=== PATIENT | male | born 1960 | race Caucasian/White ===

== ENCOUNTER 2017-04-14 12:11 | Inpatient (IN) | payer OTHER ==
[~2017-04-14] VITALS: Ht 167.6 cm; Wt 71.4 kg
--- NOTE | ~2017-04-14 | H ---
[facility] [place] [address] HISTORY AND PHYSICAL Name: THOR CALLES Room #: 305-P ADM IN M.R.#: [id number] Admission: 04/14/17 Attend Phys: Sondra Bonds MD, Discharge: Date of : 60 Report #: [id number] THIS REPORT FOR: //name// CC: GONZALO physician/PCP Sondra Bonds DATE OF SERVICE: 04/14/2017 HISTORY OF PRESENT ILLNESS: I have been asked to evaluate this 57-year-old male who presented to Emergency Room with the chief complaint of 2 days of lower abdominal pain, primarily located at right side. The onset of his pain was Thursday at approximately 4:00 p.m. He was unable to work on Thursday and the pain was progressive, worsening with hiccups or any type of abdominal movement. He denies nausea and vomiting. He is obstipated and he is anorexic since Thursday afternoon. He sought medical attention today, was found to have a CT scan demonstrating appendicitis. PAST MEDICAL HISTORY: Borderline hypertension. MEDICATIONS: None. SURGICAL ILLNESSES: Laparoscopic cholecystectomy approximately 4 years ago. Tonsillectomy in childhood. MEDICATIONS: None currently. ALLERGIES: No known drug allergies. SOCIAL HISTORY: The patient employed by [employer]. 40-50 pack year history of cigarette smoking. Occasional alcohol on the weekend, 2-3 drinks, not on a regular basis. REVIEW OF SYSTEMS: Ten point review of systems noncontributory to the present illness, except for change in gastrointestinal function. PHYSICAL EXAMINATION: GENERAL: Reveals a well-developed and well-nourished male, in no acute distress. VITAL SIGNS: He is afebrile. Blood pressure is approximately 180/90. Pulse rate 80-90. HEENT: No scleral icterus. Pupils equal, round and react to light. Extraocular movements normal limits. NECK: Supple. No adenopathy. LUNGS: Clear at the bases bilaterally. CARDIOVASCULAR: Regular rate and rhythm. ABDOMEN: Mild distention. Marked tenderness with guarding in the right lower [address] [address] [place] [address] HISTORY AND PHYSICAL [facility] Room #: 305-P ADM IN ..#: [id number] Admission: 04/14/17 Attend Phys: Sondra Bonds MD, Discharge: Date of : 60 Report #: [id number] quadrant and right upper quadrant. Rebound is positive. RECTAL: Not performed. NEUROLOGIC: He is oriented x 3. Bilateral motor symmetry. ADMITTING DIAGNOSIS: Acute appendicitis. PLAN: IV antibiotics. Laparoscopic appendectomy today. <ELECTRONICALLY SIGNED> By: Federico Lemus MD, FACS 04/14/17 1853 1554 1824 Federico Lemus MD, FACS /nt
--- NOTE | ~2017-04-14 | S ---
[facility] [place] [address] SURGICAL PATH RPT PROCEDURE Name: THOR CALLES Room #: 305-P ADM IN M.R.#: [id number] Admission: 04/14/17 Date of : 60 Discharge: Report #: [id number] Path Case #: [id number] PATHOLOGY REPORT COLLECTION DATE: 04/14/2017 RECEIVED DATE: 04/15/2017 SUBMITTING PHYS: Dr. Federico Lemus OTHER PHYS: Dr. Sondra Bonds SPECIMEN(S) RECEIVED: A.Appendix B.Adhesions on serosal surface of colon * * * * * * * * * * * * FINAL DIAGNOSIS: A. Appendix, appendectomy: - Marked acute appendicitis, along with focal serositis. - Fibrous obliteration of the tip. B. Fragment of muscularis propria, "adhesions on surface of colon", biopsy: - Reactive changes along with congestion. PATHOLOGIST: Priscilla Ybarra M.D. REPORT ELECTRONICALLY SIGNED BY: Priscilla Ybarra M.D. DATE/TIME: 04/16/2017 14:49 * * * * * * * * * * * * GROSS PATHOLOGY: A. Received in formalin labeled "Thor Colon, appendix," is an appendix measuring 5.3 cm in length and 1.0 cm in diameter with a abundant amount of attached mesoappendix. The serosal surface is moore-brown, focally congested and focally ragged. Sectioning reveals a central, patent lumen filled with blood-tinged fecal material. A transmural defect is noted 1.5 cm from the proximal margin and measures 0.5 cm. Card Checker sections are submitted in cassette A1. B. The specimen is received in formalin, labeled "Thor Calles, adhesions on the serosal surface of colon" and consists of a portion of pink-kennedy, wrinkled, rubbery fibromembranous tissue measuring 1.4 x 0.7 x 0.3 cm. A line of brandon is noted along one edge. The cut surface is pink-kennedy, lobulated to whorled. The staple line is removed and the remaining tissue is entirely submitted in cassette B1. (JWP; 04/15/2017) CLINICAL HISTORY: [address] [place] [address] SURGICAL PATH RPT PROCEDURE Name: THOR CALLES Room #: 305-P ADM IN M.R.#: [id number] Admission: 04/14/17 Date of : 60 Discharge: Report #: [id number] Path Case #: [id number] Acute appendicitis INITIAL CPT CODE(S): A; 71328 B; 54587 Professional services performed by [facility] at [address] [address] [address], [place] [address] Technical services performed by [facility] at [address] [place] [address], [address], [place] [address]. [facility] [address] [address] PHONE: [phone] DIRECTOR: Arnaud W. Susana, M.D. * * * END OF REPORT * * *
--- NOTE | ~2017-04-14 | EKG ---
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
--- NOTE | ~2017-04-14 | O ---
[facility] [place] [address] OPERATIVE REPORT Name: THOR CALLES Room #: 442-P ADM IN M.R.#: [id number] Admission: 04/14/17 Attend Phys: Federico Lemus MD, F Discharge: Date of : 60 Report #: [id number] THIS REPORT FOR: //name// CC: GONZALO physician/PCP Federico Lemus DATE OF SERVICE: 04/14/2017 DATE OF SERVICE: 04/14/2017 PREOPERATIVE DIAGNOSIS: Acute appendicitis. POSTOPERATIVE DIAGNOSIS: Acute appendicitis, early perforation with extensive adhesions secondary to previous laparoscopic cholecystectomy four years prior to admission. PROCEDURE: Laparoscopic appendectomy with lysis of extensive peritoneal adhesions for 28 minutes. SURGEON: Federico Lemus MD [employer]INT [employer] DEPOSITOR: Aysha Vazquez MS3. INDICATIONS: A 57-year-old male with 48 hours of abdominal pain, localized to the right lower quadrant. The patient was able to work yesterday. The pain started on Thursday, he sought medical attention today and a CT scan was consistent with retrocecal appendicitis with significant inflammatory changes. The patient has had previous laparoscopic cholecystectomy approximately 4 years ago for cholelithiasis. OPERATIVE PROCEDURE: The patient had a thorough discussion of the procedure, benefits and risks. He gave informed consent to proceed. He was given IV preoperative antibiotics in the holding area. He had a thorough discussion of the possibility of extensive adhesions secondary to previous cholecystectomy. He voided preoperatively. He was brought to the operating room suite and had satisfactory induction of general endotracheal anesthesia. The entire abdomen was prepped and draped in usual sterile procedure with DuraPrep. Prior to prepping and draping, the patient was well positioned, well taped and strapped to the table. After draping was completed, 0.5% plain Naropin was utilized at all trocar sites. Initially, an open cutdown procedure was performed to the infraumbilical position where previous laparoscopic cholecystectomy scar was present. This was opened under direct vision and the entrance to the peritoneal cavity was performed under direct vision. The 5 mm trocar was initially introduced utilizing the Optiport with the 5.0 scope. After pneumoperitoneum was established, the conversion to a 12 mm Gemma trocar with the balloon was then performed under direct vision. The balloon was inflated. Pneumoperitoneum [facility] [address] [place] [address] OPERATIVE REPORT Name: [facility] #: 2[facility] IN .R.#: [id number] Admission: 04/14/17 Attend Phys: Federico Lemus MD, F Discharge: Date of : 60 Report #: [id number] was fully performed. A left lower quadrant 5 mm trocar port was then placed under direct vision and a lower midline 5 mm trocar port was placed under direct vision. The appendix was in a far lateral retrocecal position. It was inflamed with extensive fibrinous exudate present on the appendix. The cecum had to be rolled medially. A window was made in the mesoappendix. The mesoappendix was then taken down with the Sonicision energy device. The base of the appendix was crossclamped, ligated and divided with the MARIELLA blue load. The appendix and mesoappendix extended far inferiorly and laterally to the cecum. After the appendix was transected, it was placed into an Endobag and removed from the peritoneal cavity. Photographs were taken of the dissection and the appendix and made part of the medical record. Then 0 PDS [id number] sutures were placed at the infraumbilical port site. Additional adhesions, which had been identified and photographed, were present at the level of the previous infraumbilical incision. These adhesions were taken down with the Sonicision. More adhesions were present to the hepatic flexure of the colon and the MARIELLA stapling device was utilized to transect some serosal adhesion to the anterior abdominal wall of the hepatic flexure of the colon. The remaining adhesions were taken down with the Sonicision device. Extensive lysis of adhesions lasted for approximately 28 minutes, more than the usual timeframe for laparoscopic appendectomy. This was all secondary to previous laparoscopic cholecystectomy surgery approximately 4 years ago. No other intra-abdominal pathology was noted. Liver was unremarkable. The stomach was well visualized. The lower abdomen was unremarkable. After hemostasis was secured, a 15 Armenian drain was placed through the inferior midline 5 mm port site and placed in the region of the appendiceal stump. The other trocar was removed under direct vision. The 12 mm infraumbilical port was then removed. The pneumoperitoneum was totally deflated. The 0 PDS suture was ligated in place. The drain was sutured in place with 2-0 nylon. The other 2 port sites had closure of the skin with a running subcuticular 4-0 Monocryl suture. Dermabond was applied. Drain sponge was applied to the lower midline drain site. The patient tolerated the procedure. All sponge and needle counts were correct prior to closure. Estimated blood loss was approximately 50 mL. The patient tolerated the procedure well and returned to the recovery room in stable and satisfactory condition. <ELECTRONICALLY SIGNED> By: Federico Lemus MD, FACS 04/17/17 0957 1157 1237 Federico Lemus MD, FACS /nt
[2017-04-14 12:12] VITALS: BP 171/93
[2017-04-14 13:02] LABS: ABSOLUTE NEUTROPHILS 6.5 thou/uL (1.4-8.2); BASOPHILS 0.9 % (0.0-2.0); EOSINOPHILS 1.8 % (0.0-3.0); HEMATOCRIT 53.1 % (42.0-52.0); HEMOGLOBIN 18.3 gm/dL (14.0-18.0); LYMPHOCYTES 26.8 % (24.0-44.0); MCH 32.5 pg (26.0-34.0); MCHC 34.5 g/dL (28.0-37.0); MCV 94.4 fL (80.0-100.0); MONOCYTES 6.5 % (1.0-8.0); PLATELET COUNT 269 thou/uL (150-400); RBC 5.63 mil/uL (4.50-6.00); RDW 13.5 % (10.5-14.5); WBC 10.2 thou/uL (4.0-11.0)
[2017-04-14 13:03] LABS: MANUAL DIFF NO
[2017-04-14 13:09] LABS: CALCIUM 9.3 mg/dL (8.5-10.1); CREATININE 0.8 mg/dL (0.7-1.3); POTASSIUM 3.7 mmol/L (3.5-5.1)
[2017-04-14 13:14] LABS: ALBUMIN 4.2 g/dL (3.4-5.0); DIRECT BILIRUBIN 0.1 mg/dL (<0.1-0.3); TOTAL BILIRUBIN 0.7 mg/dL (<0.1-1.0); TOTAL PROTEIN 8.4 g/dL (6.4-8.2)
[2017-04-14 15:34] VITALS: BP 152/101
[2017-04-14 19:50] VITALS: BP 145/90
[2017-04-14 23:10] VITALS: BP 145/92
[2017-04-15 03:55] VITALS: BP 139/80
[2017-04-15 04:03] LABS: HEMATOCRIT 46.8 % (42.0-52.0); MCH 32.5 pg (26.0-34.0); MCHC 34.2 g/dL (28.0-37.0); MCV 95.2 fL (80.0-100.0); RBC 4.92 mil/uL (4.50-6.00); RDW 13.4 % (10.5-14.5); WBC 15.3 thou/uL (4.0-11.0)
[2017-04-15 04:13] LABS: CALCIUM 8.2 mg/dL (8.5-10.1); CREATININE 0.7 mg/dL (0.7-1.3)
[2017-04-15 08:06] VITALS: BP 142/91
[2017-04-15 17:20] VITALS: BP 140/74
[2017-04-15 19:24] VITALS: BP 130/78
[2017-04-16 04:07] VITALS: BP 149/82
[2017-04-16 05:59] LABS: ABSOLUTE NEUTROPHILS 7.9 thou/uL (1.4-8.2); BASOPHILS 1.3 % (0.0-2.0); EOSINOPHILS 1.7 % (0.0-3.0); HEMATOCRIT 43.6 % (42.0-52.0); HEMOGLOBIN 14.8 gm/dL (14.0-18.0); LYMPHOCYTES 20.4 % (24.0-44.0); MCH 32.2 pg (26.0-34.0); MCV 94.7 fL (80.0-100.0); MONOCYTES 8.3 % (1.0-8.0); PLATELET COUNT 238 thou/uL (150-400); POLYS 68.3 % (36.0-66.0); RDW 13.5 % (10.5-14.5); WBC 11.6 thou/uL (4.0-11.0)
[2017-04-16 06:07] LABS: MANUAL DIFF NO
[2017-04-16 06:21] LABS: ALBUMIN 2.7 g/dL (3.4-5.0); CALCIUM 7.5 mg/dL (8.5-10.1); CREATININE 0.7 mg/dL (0.7-1.3); MAGNESIUM 1.8 mg/dL (1.8-2.4); POTASSIUM 3.3 mmol/L (3.5-5.1); TOTAL BILIRUBIN 0.8 mg/dL (<0.1-1.0)
[2017-04-16 07:47] VITALS: BP 153/84
[2017-04-16 15:53] VITALS: BP 161/94
[2017-04-16 20:20] VITALS: BP 173/81
[2017-04-17 04:00] VITALS: BP 151/89
[2017-04-17 06:15] LABS: HEMATOCRIT 49.9 % (42.0-52.0); MCH 32.5 pg (26.0-34.0); MCHC 33.9 g/dL (28.0-37.0); MCV 95.8 fL (80.0-100.0); RBC 5.21 mil/uL (4.50-6.00); RDW 13.2 % (10.5-14.5); WBC 10.2 thou/uL (4.0-11.0)
[2017-04-17 06:37] LABS: CALCIUM 8.3 mg/dL (8.5-10.1); CREATININE 0.8 mg/dL (0.7-1.3); POTASSIUM 3.7 mmol/L (3.5-5.1)
[2017-04-17 06:54] LABS: HEMOGLOBIN 16.9 gm/dL (14.0-18.0)
[2017-04-17 07:10] VITALS: BP 145/79
[2017-04-17 15:42] VITALS: BP 145/79
== END 2017-04-17 16:39 | disposition home or self-care (01) | DRG 335 ==
LOC: ER 12:11 → EROBS 15:13 → 3N 15:13 → EROBS 15:57 → 3N 18:07 → 4S 04-16 17:47 → ENTRNSPT 04-17 16:13 → 4S 04-17 16:39
PROVIDERS: Emergency Medicine; Hospitalist; Nurse Practitioner; Surgery
PROC: 0DTJ4ZZ Resection of Appendix, Percutaneous Endoscopic Approach (ICD-10-PCS; principal; 2017-04-14)
PROC: 0DNE4ZZ Release Large Intestine, Percutaneous Endoscopic Approach (ICD-10-PCS; principal; 2017-04-14)
PROC: 0DNW4ZZ Release Peritoneum, Percutaneous Endoscopic Approach (ICD-10-PCS; principal; 2017-04-14)
DX: K35.2 Acute appendicitis with generalized peritonitis (principal); E43 Unspecified severe protein-calorie malnutrition; K59.00 Constipation, unspecified; R03.0 Elevated blood-pressure reading, without diagnosis of hypertension; R63.0 Anorexia; K66.0 Peritoneal adhesions (postprocedural) (postinfection); Z53.29 Procedure and treatment not carried out because of patient's decision for other reasons; Z90.49 Acquired absence of other specified parts of digestive tract; Z87.891 Personal history of nicotine dependence; Z68.25 Body mass index [BMI] 25.0-25.9, adult; Z71.6 Tobacco abuse counseling
CPT/HCPCS: 10094; 10102; 50010; 50101; 50249; 50331; 50411; 50555; 50739; 50740; 50944; 50962; 51489; 51975; 52265; 53307; 54022; 54118; 56525; 56526; 62110; 62900; 70005